=== PATIENT | female | born 1990 | race Caucasian/White ===

== ENCOUNTER 2020-12-18 14:16 | Inpatient (IN) ==
[2020-12-18 14:59] LABS: Basophils # (auto) 0.03 K/uL (0-0.2); Basophils % (auto) 0.4 %; Eosinophils # (auto) 0.08 K/uL (0-0.5); Eosinophils % (auto) 1.2 %; Hematocrit (blood only) 42.5 % (37-47); Hemoglobin 14.5 g/dL (12.0-16.0); Immature Granulocytes # (auto) 0.02 K/uL (0.00-0.02); Immature Granulocytes % (auto) 0.3 %; Lymphocytes # (auto) 1.48 K/uL (1.2-3.4); Lymphocytes % (auto) 21.8 %; Mean Corpuscular Hgb Conc 34.1 g/dL (32-36); Mean Corpuscular Volume 96.6 fL (80-100); Mean Platelet Volume 9.5 fL (7.4-10.4); Monocytes # (auto) 0.65 K/uL (0.11-0.59); Monocytes % (auto) 9.6 %; Neutrophils # (auto) 4.53 K/uL (1.4-6.5); Neutrophils % (auto) 66.7 %; Platelet Count 282 K/uL (130-400); RDW Standard Deviation 45.7 fL (36.4-46.3); White Blood Count 6.79 K/uL (4.8-10.8)
[2020-12-18 15:21] LABS: Albumin Level 3.8 gm/dl (3.4-5.0); Calcium 8.8 mg/dl (8.5-10.1); Creatinine Clr Calc Pharmacy 141.3 ml/min; Est GFR (African American) 130.6 ml/min; Est GFR (Non-African American) 112.7 ml/min; Potassium 3.8 mmol/L (3.5-5.1)
[2020-12-18 15:32] LABS: Albumin Globulin Ratio 1.3 (0.9-2); Bilirubin,Total 0.4 mg/dl (0.2-1); Thyroid Stimulating Hormone 0.585 uIu/ml (0.300-4.500); Total Protein 6.8 gm/dl (6.4-8.2)
[2020-12-18 15:42] LABS: Acetaminophen < 2 ug/ml (10-30)
[2020-12-18 15:43] LABS: Salicylate < 1.7 mg/dl (2.8-20)
[2020-12-18 16:43] LABS: Appearance Urine Clear (Clear); Bilirubin Urine Negative (Negative); Blood Urine Negative (Negative); Color Urine Yellow; Glucose Urine UA Negative (Negative); Ketones Urine Negative (Negative); Leukocyte Esterase Urine Negative (Negative); Nitrite Urine Negative (Negative); Protein Urine Negative (Negative); Specific Gravity Urine 1.006 (1.000-1.030); Urobilinogen Urine Negative (Negative); pH Urine 7.5 (4.5-7.5)
--- NOTE | 2020-12-18 16:59 | Emergency Department Note ---
Impression & Plan Mood disorder ED Provider Note NAME: SUDHEER MADISON AGE: 30 SEX: F : 1990 ARRIVES VIA: Walk-In INFORMANT: Patient, ED PROVIDER(S): Aguilar Hamilton MD CHIEF COMPLAINT: Feeling suicidal HPI: This is a 30-year-old female who presents emergency department complaining of feeling suicidal. The patient is homeless and is living in a [place] [facility] [place]. She believes she is approximately 6 weeks . The patient reports all of her meds were stopped except for Zoloft during her . She reports nothing makes the feelings of feeling suicidal better or worse. She has not tried or taken anything for the feelings. She reports she does have a history of attempting suicide previously. The patient has been to the emergency department multiple times for this this month and is frustrated that her symptoms do not appear to be getting any better. ROS: See above HPI for pertinent positives & negatives. A total of 10 systems reviewed and were otherwise negative. PAST MEDICAL HISTORY: See Below PAST SURGICAL HISTORY: See Below FAMILY HISTORY: See Below SOCIAL HISTORY: See Below HOME MEDICATIONS: See Below ALLERGIES: See Below VITALS: See Below PHYSICAL EXAMINATION: VITAL SIGNS - Vital signs and nursing notes were reviewed. GENERAL - 30-year-old female appearing stated age who is in no acute distress. SKIN - Without rashes. HEAD - NC/AT. EYES - PERRL with EOMI bilaterally. Sclera anicteric. Palpebral conjunctiva pink and moist with no injection noted. EARS - No deformities of external structures noted on gross examination bilaterally. NOSE - Midline and without cyanosis. No epistaxis or purulent drainage noted. Septum midline without deviation or septal hematoma noted. MOUTH/OROPHARYNX - Without perioral cyanosis. Buccal mucosa pink and moist and without leukoplakia. Tongue midline with equal elevation of palate bilaterally. No tonsillar hypertrophy, erythema, or exudates noted. NECK - Neck with FROM. Supple to palpation. No nuchal rigidity. LUNGS - Chest wall symmetric without accessory muscle use, intercostals retractions, or central cyanosis. Normal vesicular breath sounds CTA B/L. No wheezes, rales, or rhonchi appreciated. CARDIAC - RRR with S1/S2. No murmur, rubs, or gallops appreciated. ABDOMEN - Abdominal contour without pulsations or visible masses. BS normoactive all four quadrants. No tenderness, palpable masses, hepatosplenom egaly, or ascites noted. EXTREMITIES - No clubbing or peripheral cyanosis. No pretibial edema present. +3/5 radial, posterior tibial, and dorsalis pedis pulses palpated throughout. +5/5 strength noted in UE/LE bilaterally. NEUROLOGIC - Cranial nerves II through XII grossly intact. Sensory intact to light touch throughout. Patellar reflexes +2/4. PSYCH - A&Ox3 and cooperates fully with examiner. Pt is very pleasant and interacts well with examiner. MEDICAL DECISION MAKING: Patient was seen and evaluated as above in room A7. Review was performed of nursing notes and vital signs. I did review pertinent previous visits and patient history. After obtaining a thorough history and physical examination the above work up was performed. This is a 30-year-old female who presents emergency department feeling suicidal. This is the ninth time the patient has been in the emergency department for this this month. Her medicines have recently been changed. She is currently living in a [place] [facility] [place] and was sent in by [facility]. She was medically cleared by me. She does not have an elevation in her white blood cell count has a normal renal profile. BHCG is climbing. Patient was subsequently accepted to [facility]. An order was placed for continuous cardiac monitoring. The monitor shows a rate of 76 with Normal SInus rhythm. The patient was evaluated during a period of high volume and high acuity during the global COVID-19 pandemic, and that diagnosis was suspected/considered upon their initial presentation. Their evaluation, treatment and testing was consistent with current guidelines for patients who present with complaints or symptoms that may be related to COVID-19. Patient was seen while provider was wearing PPE. Triage Nursing notes reviewed. Prior medical records reviewed Vital Signs: reviewed and remarkable for no significant abnormalities Differential diagnosis: Mood disorder, infection, hypoglycemia, electrolyte abnormalities, cardiac sources, intracerebral event, toxicologic, trauma, neurologic, as well as other pathologies. ER treatment provided: See below Laboratory studies: As stated above and show below. Past Med/Surg History Medical History High serum chloride Personality disorder PTSD (post-traumatic stress disorder) Suicidal ideation Suicide attempt Surgical History Hx of cholecystectomy Social History Smoking Status: Current every day smoker Tobacco Type: Cigarettes Preferred Language: Lao Communication Ability: Effective Coastal Tug Mate Required: No Beliefs That Will Affect Care: None Feels Safe at Home: Yes Assistive Devices: None Allergies Allergies Allergy/AdvReac Type Severity Reaction Status Date / Time codeine Allergy Unknown DOESN'T Verified 12/16/20 00:40 REMEMBER morphine Allergy Unknown DOESN'T Verified 12/16/20 00:40 REMEMBER Penicillins Allergy Unknown DOESN'T Verified 12/16/20 00:40 REMEMBER strawberry Allergy Unknown DOESN'T Uncoded 12/16/20 00:40 REMEMBER Home Meds Home Medications Medication Instructions Recorded Confirmed docusate sodium [Stool Softener] 100 mg PO DAILY 07/09/20 12/18/20 levothyroxine 88 mcg PO DAILY 07/09/20 12/18/20 sucralfate 1 g PO TIDM 07/09/20 12/18/20 ferrous sulfate 325 mg PO DAILY 07/10/20 12/18/20 omeprazole 20 mg PO QAM 07/10/20 12/18/20 acetaminophen 500 mg PO Q6 PRN 08/15/20 12/18/20 loratadine [Allergy Relief 10 mg PO DAILY 08/15/20 12/18/20 (loratadine)] sertraline [Zoloft] 50 mg PO DAILY 12/14/20 12/18/20 PNV cmb#[id number] fumarate-FA 1 tab PO DAILY 12/16/20 12/18/20 [] Results & Data (ED) Vital Signs Vital Signs - 24 hr 12/18/20 14:18 12/18/20 16:53 12/18/20 19:34 Temperature 36.3 C L Temperature Source Temporal Artery Scan Pulse Rate 94 H Pulse Rate [Finger] 76 Respiratory Rate 18 14 Respiratory Effort / Characteristics Non-Labored Spontaneous Respiratory Depth Normal Normal Respiratory Pattern Regular Blood Pressure 129/89 Blood Pressure [Right Arm] 108/72 Blood Pressure Mean 102 Blood Pressure Mean [Right Arm] 84 Blood Pressure Position [Right Arm] Lying Pulse Oximetry 99 98 Oxygen Delivery Method Room Air Room Air Room Air Sepsis Recent Fever Within 48 Hours No Sepsis New/Unexplained Change in Mental Status N/A Sepsis Action Taken by Nursing No Action Required Laboratory Data Result diagrams: 12/18/20 14:39 12/18/20 14:39 Lab Results 12/18/20 12/18/20 12/18/20 Range/Units 14:39 14:39 14:39 WBC 6.79 (4.8-10.8) K/uL RBC 4.40 (4.2-5.4) M/uL Hgb 14.5 (12.0-16.0) g/dL Hct 42.5 (37-47) % MCV 96.6 (80-100) fL MCH 33.0 (25-34) pg MCHC 34.1 (32-36) g/dL RDW Std Deviation 45.7 (36.4-46.3) fL RDW Coeff of Katia 13.0 (11.5-14.5) % Plt Count 282 (130-400) K/uL MPV 9.5 (7.4-10.4) fL Immature Gran % (Auto) 0.3 % Neut % (Auto) 66.7 % Lymph % (Auto) 21.8 % [place] % (Auto) 9.6 % Eos % (Auto) 1.2 % Baso % (Auto) 0.4 % Neut # (Auto) 4.53 (1.4-6.5) K/uL Lymph # (Auto) 1.48 (1.2-3.4) K/uL [place] # (Auto) 0.65 H (0.11-0.59) K/uL Eos # (Auto) 0.08 (0-0.5) K/uL Baso # (Auto) 0.03 (0-0.2) K/uL Immature Gran # (Auto) 0.02 (0.00-0.02) K/uL Sodium 140 (136-145) mmol/L Potassium 3.8 (3.5-5.1) mmol/L Chloride 110 H (98-107) mmol/L Carbon Dioxide 26 (21-32) mmol/L Anion Gap 4.0 (3-11) BUN 10 (7-18) mg/dl Creatinine 0.71 (0.6-1.2) mg/dl Est Cr Clr Drug Dosing 141.3 ml/min Est GFR ( Amer) 130.6 ml/min Est GFR (Non-Af Amer) 112.7 ml/min BUN/Creatinine Ratio 14.0 (10-20) Glucose 100 H (70-99) mg/dl Calcium 8.8 (8.5-10.1) mg/dl Total Bilirubin 0.4 (0.2-1) mg/dl AST 9 L (15-37) U/L ALT 24 (12-78) U/L Alkaline Phosphatase 75 (45-117) U/L Total Protein 6.8 (6.4-8.2) gm/dl Albumin 3.8 (3.4-5.0) gm/dl Globulin 3.0 (2.5-4.0) gm/dl Albumin/Globulin Ratio 1.3 (0.9-2) TSH 0.585 (0.300-4.500) uIu/ml HCG, Quant 29410 mIU/ml Urine Color Urine Appearance (Clear) Urine pH (4.5-7.5) Ur Specific [place] (1.000-1.030) Urine Protein (Negative) Urine Glucose (UA) (Negative) Urine Ketones (Negative) Urine Blood (Negative) Urine Nitrite (Negative) Urine Bilirubin (Negative) Urine Urobilinogen (Negative) Ur Leukocyte Esterase (Negative) Salicylates (2.8-20) mg/dl Urine Opiates Screen (Neg) Ur Methadone, Qual (Neg) Acetaminophen (10-30) ug/ml Urine Barbiturates (Neg) Ur Phencyclidine (PCP) (Neg) U Amphetamin/Meth Scrn (Neg) MDMA (Ecstasy) Screen (Neg) U Benzodiazepines Scrn (Neg) Ur Cocaine Metabolite (Neg) U Marijuana (THC) Screen (Neg) Ethyl Alcohol mg/dL (0-3) mg/dl COVID-19 Eval Order SARS-CoV-2 (PCR) (Negative) 12/18/20 12/18/20 12/18/20 Range/Units 14:39 14:39 16:20 WBC (4.8-10.8) K/uL RBC (4.2-5.4) M/uL Hgb (12.0-16.0) g/dL Hct (37-47) % MCV (80-100) fL MCH (25-34) pg MCHC (32-36) g/dL RDW Std Deviation (36.4-46.3) fL RDW Coeff of [place] (11.5-14.5) % Plt Count (130-400) K/uL MPV (7.4-10.4) fL Immature Gran % (Auto) % Neut % (Auto) % Lymph % (Auto) % [place] % (Auto) % Eos % (Auto) % Baso % (Auto) % Neut # (Auto) (1.4-6.5) K/uL Lymph # (Auto) (1.2-3.4) K/uL [place] # (Auto) (0.11-0.59) K/uL Eos # (Auto) (0-0.5) K/uL Baso # (Auto) (0-0.2) K/uL Immature Gran # (Auto) (0.00-0.02) K/uL Sodium (136-145) mmol/L Potassium (3.5-5.1) mmol/L Chloride (98-107) mmol/L Carbon Dioxide (21-32) mmol/L Anion Gap (3-11) BUN (7-18) mg/dl Creatinine (0.6-1.2) mg/dl Est Cr Clr Drug Dosing ml/min Est GFR ( Amer) ml/min Est GFR (Non-Af Amer) ml/min BUN/Creatinine Ratio (10-20) Glucose (70-99) mg/dl Calcium (8.5-10.1) mg/dl Total Bilirubin (0.2-1) mg/dl AST (15-37) U/L ALT (12-78) U/L Alkaline Phosphatase (45-117) U/L Total Protein (6.4-8.2) gm/dl Albumin (3.4-5.0) gm/dl Globulin (2.5-4.0) gm/dl Albumin/Globulin Ratio (0.9-2) TSH (0.300-4.500) uIu/ml HCG, Quant mIU/ml Urine Color Yellow Urine Appearance Clear (Clear) Urine pH 7.5 (4.5-7.5) Ur Specific [place] 1.006 (1.000-1.030) Urine Protein Negative (Negative) Urine Glucose (UA) Negative (Negative) Urine Ketones Negative (Negative) Urine Blood Negative (Negative) Urine Nitrite Negative (Negative) Urine Bilirubin Negative (Negative) Urine Urobilinogen Negative (Negative) Ur Leukocyte Esterase Negative (Negative) Salicylates < 1.7 L (2.8-20) mg/dl Urine Opiates Screen (Neg) Ur Methadone, Qual (Neg) Acetaminophen < 2 L (10-30) ug/ml Urine Barbiturates (Neg) Ur Phencyclidine (PCP) (Neg) U Amphetamin/Meth Scrn (Neg) MDMA (Ecstasy) Screen (Neg) U Benzodiazepines Scrn (Neg) Ur Cocaine Metabolite (Neg) U Marijuana (THC) Screen (Neg) Ethyl Alcohol mg/dL < 3.0 (0-3) mg/dl COVID-19 Eval Order SARS-CoV-2 (PCR) (Negative) 12/18/20 12/18/20 12/18/20 Range/Units 16:20 17:15 17:15 WBC (4.8-10.8) K/uL RBC (4.2-5.4) M/uL Hgb (12.0-16.0) g/dL Hct (37-47) % MCV (80-100) fL MCH (25-34) pg MCHC (32-36) g/dL RDW Std Deviation (36.4-46.3) fL RDW Coeff of Katia (11.5-14.5) % Plt Count (130-400) K/uL MPV (7.4-10.4) fL Immature Gran % (Auto) % Neut % (Auto) % Lymph % (Auto) % [place] % (Auto) % Eos % (Auto) % Baso % (Auto) % Neut # (Auto) (1.4-6.5) K/uL Lymph # (Auto) (1.2-3.4) K/uL [place] # (Auto) (0.11-0.59) K/uL Eos # (Auto) (0-0.5) K/uL Baso # (Auto) (0-0.2) K/uL Immature Gran # (Auto) (0.00-0.02) K/uL Sodium (136-145) mmol/L Potassium (3.5-5.1) mmol/L Chloride (98-107) mmol/L Carbon Dioxide (21-32) mmol/L Anion Gap (3-11) BUN (7-18) mg/dl Creatinine (0.6-1.2) mg/dl Est Cr Clr Drug Dosing ml/min Est GFR ( Amer) ml/min Est GFR (Non-Af Amer) ml/min BUN/Creatinine Ratio (10-20) Glucose (70-99) mg/dl Calcium (8.5-10.1) mg/dl Total Bilirubin (0.2-1) mg/dl AST (15-37) U/L ALT (12-78) U/L Alkaline Phosphatase (45-117) U/L Total Protein (6.4-8.2) gm/dl Albumin (3.4-5.0) gm/dl Globulin (2.5-4.0) gm/dl Albumin/Globulin Ratio (0.9-2) TSH (0.300-4.500) uIu/ml HCG, Quant mIU/ml Urine Color Urine Appearance (Clear) Urine pH (4.5-7.5) Ur Specific [place] (1.000-1.030) Urine Protein (Negative) Urine Glucose (UA) (Negative) Urine Ketones (Negative) Urine Blood (Negative) Urine Nitrite (Negative) Urine Bilirubin (Negative) Urine Urobilinogen (Negative) Ur Leukocyte Esterase (Negative) Salicylates (2.8-20) mg/dl Urine Opiates Screen Neg (Neg) Ur Methadone, Qual Neg (Neg) Acetaminophen (10-30) ug/ml Urine Barbiturates Neg (Neg) Ur Phencyclidine (PCP) Neg (Neg) U Amphetamin/Meth Scrn Neg (Neg) MDMA (Ecstasy) Screen Neg (Neg) U Benzodiazepines Scrn Neg (Neg) Ur Cocaine Metabolite Neg (Neg) U Marijuana (THC) Screen Neg (Neg) Ethyl Alcohol mg/dL (0-3) mg/dl COVID-19 Eval Order Covid19 at [facility] SARS-CoV-2 (PCR) NEGATIVE (Negative) Administered Medications Docusate Sodium (Docusate Sodium 100 Mg Cap) 100 mg PO DAILY JOSE CRUZ Stop: 01/18/21 08:59 Last Admin: 12/19/20 10:06 Dose: 100 mg Documented by: [id number] Hydroxyzine HCl (Hydroxyzine Hcl 25 Mg Tab) 25 mg PO Q4H PRN PRN Reason: Anxiety Stop: 01/17/21 19:56 Last Admin: 12/18/20 20:29 Dose: 25 mg Documented by: [id number] Levothyroxine Sodium (Levothyroxine Sodium 88 Mcg Tablet) 88 mcg PO DAILYBB [facility] Stop: 01/18/21 07:59 Last Admin: 12/19/20 10:05 Dose: 88 mcg Documented by: [id number] Loratadine (Loratadine 10 Mg Tab) 10 mg PO QAM [facility] Stop: 01/18/21 08:59 Last Admin: 12/19/20 10:06 Dose: 10 mg Documented by: [id number] Prenat Multivit/[place]/Iron/Folic Ac ( Vitamin 1 Tab) [facility] Stop: 01/18/21 08:59 Last Admin: 12/19/20 10:06 Dose: 1 tab Documented by: [id number] Sucralfate (Sucralfate 1 Gm Tab) 1 gm PO QID [facility] Stop: 01/17/21 20:59 Last Admin: 12/19/20 13:34 Dose: 1 gm Documented by: [id number] Admin: 12/19/20 10:07 Dose: 1 gm Documented by: [id number] Admin: 12/18/20 20:33 Dose: 1 gm Documented by: [id number] Discontinued Medications Sertraline HCl (Sertraline Hcl 50 Mg Tablet) [facility] Stop: 01/18/21 08:59 Last Admin: 12/19/20 10:07 Dose: 50 mg Documented by: [id number] Discharge Plan Visit Data Chief Complaint: Mental Health Evaluation Stated Complaint: MENTAL HEALTH EVALUATION ED Provider: Aguilar Hamilton Discharge Problem: Mood disorder Patient Disposition: Admitted As Inpatient Discharge Instructions Interventions: ED Discharge Assessment Last Done: 12/18/20 19:34
[2020-12-18 17:04] LABS: Amphetamines+Metham, Urine Neg (Neg); Barbiturates, Urine Neg (Neg); Benzodiazepine, Urine Neg (Neg); Cocaine, Urine Neg (Neg); MDMA (Ecstacy), Urine Neg (Neg); Methadone, Urine Neg (Neg); Opiate, Urine Neg (Neg); Phencyclidine, Urine Neg (Neg)
[2020-12-18] MEDS ORDERED: hydrOXYzine HCl 25 MG TAB PO PRN (19:57)
[2020-12-18] MEDS ORDERED: MAGNESIUM HYDROXIDE SUSP 30 ML UDC PO PRN (19:57)
[2020-12-18] MEDS ORDERED: BISMUTH SUBSALICYLATE LIQD 236 ML PO PRN (19:57)
[2020-12-18] MEDS ORDERED: ACETAMINOPHEN 325 MG TAB PO PRN (19:57)
[2020-12-18] MEDS ORDERED: ALUMINUM/MAGNESIUM SUSP 30 ML UDC PO PRN (19:57)
[2020-12-18] MEDS ORDERED: SODIUM CHLORIDE 0.65% NA SOLN 45 ML (OCEAN) PRN (19:57)
[2020-12-18] MEDS: hydrOXYzine HCl 25 MG TAB PO PRN (20:29)
[2020-12-18] MEDS: SUCRALFATE 1 GM TAB PO SCH (20:33)
[2020-12-19] MEDS ORDERED: SERTRALINE HCL 50 MG TABLET PO SCH (09:00)
[2020-12-19] MEDS: LEVOTHYROXINE SODIUM 88 MCG TABLET PO SCH (10:05)
[2020-12-19] MEDS: PRENATAL VITAMIN 1 TAB PO SCH (10:06)
[2020-12-19] MEDS: DOCUSATE SODIUM 100 MG CAP PO SCH (10:06)
[2020-12-19] MEDS: LORATADINE 10 MG TAB PO SCH (10:06)
[2020-12-19] MEDS: SUCRALFATE 1 GM TAB PO SCH ×4 (10:07→21:20)
--- NOTE | 2020-12-19 14:53 | History & Physical ---
Date of Service December 19, 2020 Impression / Recommendations Impression 30 yo female with extensive hx of SIB/suicidal gestures and hospitalizations culminating in extended state hospital stay, presents for 3rd hospitalization since discharge with SI in the context of now being and recent medication changes. (1) : Monitor outpatient follow-up with obstetrics and gynecology. Weeks of gestation: less than 8 weeks Qualified Code(s): Z3A.01 - Less than 8 weeks gestation of Present on Admission?: Yes (2) Depressed mood: The patient was admitted to the [facility] ([facility]) on q15 min checks (behavioral with suicide precautions) for safety. The patient will participate in group, recreational, and milieu therapies and will be offered additional individual and family sessions as clinically appropriate. Continue current medications. Patient's medications recently discontinued we will increase sertraline to 100 mg as patient was on 80 mg of Prozac when it was discontinued we will re-add haloperidol as this has no proven data that it is harmful in this was discussed with the patient and reviewed the risks and the benefits of using haloperidol Present on Admission?: Yes (3) Suicidal ideation: Patient at this time denies active suicidal thoughts or plan Present on Admission?: Yes Inventory Assets Strengths: Verbal Needs: THerapy, medication management Risk Factors Assessment Male: No Do You Have Access To A Gun?: No Mental Health Diagnoses: Yes Substance Use Disorders: No Protective Factors Assessment Employed: No Stable Relationships: Yes Good Rapport with Provider: Yes Psychiatric History Identifying Data SUDHEER MADISON is s a 30-year-old F who currently lives in [facility], has a history of self-injurious behavior and state hospitalization, and was admitted on 12/18/20 19:36 on a 201 voluntary commitment for Suicidal Ideation, In the context of medication changes and new . Chief Complaint "[They changed my medications and I got very depressed]". History of Present Illness Patient has a prior admission to [address] [place] [address] in 2019 and in the past in 2005, subsequently admitted to multiple units before placed at [facility] for 4 years (discharged 06/26). She has been living in [facility] recently. She reported developing SI past several days due to adjustment of her medication. Recently reported " getting 7 weeks" and her outpatient docs changing my medicines" reports increase depression since then. Sudheer states that she started having intrusive thoughts, with worsening suicidal ideations past several days. Patient reports coming to the emergency department several times and feeling that she could not take it anymore she denied having an active plan at the time. Patient when seen today denies suicidal thoughts or plans felt that she needed her medications adjusted patient also did admit that her was unplanned and unexpected. Patient denies auditory hallucinations visual hallucinations or homicidal thoughts. Past Psychiatric History Previous Psych History: Previous Psych History: extensive starting with treatment as a child in foster care, ultimately RTF placement Current Psychiatric Diagnosis: Bipolar d/o, Borderline personality disorder, PTSD Outpatient Services: [facility] MO[facility], [facility], no therapist Previous Psych Admissions: last here 2006, multiple ([facility], [facility], [facility], [facility], [facility]--most recent 07/26) Current Psychiatric Diagnosis: Bipolar Disorder Previous Psych Admissions: Previous Psych History: extensive starting with treatment as a child in foster care, ultimately RTF placement Current Psychiatric Diagnosis: Bipolar d/o, Borderline personality disorder, PTSD Out[facility], no therapist Previous Psych Admissions: last here 10/25 and 2006, multiple admissions including [facility], [place], [facility], [facility], [facility] 07/26, most recent [facility]- 10/25 ) Do You Have Access To A Gun?: No History of Previous Suicide Attempt: Yes Describe Attempts in the Past: Overdose in October Past Medication Trials: extensive--per various ED notes include but likely not limited to: Zyprexa, Neurontin, Pail, Zoloft, Trileptal, Bupropion, Ziprasidone, lurasidone, lamictal, klonopin, buspar, lithium and current meds. Past Head Trauma/Neuro History History of Concussion/Seizure: No Allergies Allergy/AdvReac Type Severity Reaction Status Date / Time codeine Allergy Unknown DOESN'T Verified 12/16/20 00:40 REMEMBER morphine Allergy Unknown DOESN'T Verified 12/16/20 00:40 REMEMBER Penicillins Allergy Unknown DOESN'T Verified 12/16/20 00:40 REMEMBER strawberry Allergy Unknown DOESN'T Uncoded 12/16/20 00:40 REMEMBER Home Medications Medication Instructions Recorded Confirmed Type docusate sodium [Stool Softener] 100 mg PO DAILY 07/09/20 12/18/20 History levothyroxine 88 mcg PO DAILY 07/09/20 12/18/20 History sucralfate 1 g PO TIDM 07/09/20 12/18/20 History ferrous sulfate 325 mg PO DAILY 07/10/20 12/18/20 History omeprazole 20 mg PO QAM 07/10/20 12/18/20 History acetaminophen 500 mg PO Q6 PRN 08/15/20 12/18/20 History loratadine [Allergy Relief 10 mg PO DAILY 08/15/20 12/18/20 History (loratadine)] sertraline [Zoloft] 50 mg PO DAILY 12/14/20 12/18/20 History PNV cmb#95-ferrous fumarate-FA 1 tab PO DAILY 12/16/20 12/18/20 History [] Family History Family History of: Doesn't Know Alcohol History Hx of Alcohol Use Over the Past 12 Months: No AUDIT Total Score: 0 Smoking Use Have You Smoked or Used Tobacco Products in the Last 30 Days: Yes tobacco type: cigarettes Smoking Status: Current every day smoker Smoking packs per day: 5 Substance History Hx of Prescription Med Misuse Over the Past 12 Months: No Hx of Over the Counter Med Misuse Over the Past 12 Months: No Hx of Inhalent Misuse Over the Past 12 Months: No Hx of Organic Substance Use Over the Past 12 Months: No Hx of Illegal Substances/Street Drug Use Over Past 12 Months: No Problems as a Result of Past Substance Use: None Identified Personal History Living Arrangements: Temporary [facility] Living Arrangements Comments: Currently staying at [place] Highest Grade Completed: High School Graduate Marital Status: Single Number Of Children: Currently - 8 weeks Beliefs That Will Affect Care: None Legal Problems Comment: Currently facing fraud charges, has upcoming court hearing in January 2021 Hx Traumatic Life Events: Yes Patient History Medical History High serum chloride Personality disorder PTSD (post-traumatic stress disorder) Suicidal ideation Suicide attempt Surgical History Hx of cholecystectomy Social History Smoking Status: Current every day smoker Tobacco Type: Cigarettes Preferred Language: Uzbek Communication Ability: Effective Library Technology Instructor Required: No Beliefs That Will Affect Care: None Feels Safe at Home: Yes Assistive Devices: None Review of Systems Review of Systems: All systems reviewed & are unremarkable except as noted in HPI & below Patient is currently 7 weeks Physical Exam Psychiatric: Orientation: alert, oriented to person, oriented to place, oriented to time and cooperative Eye Contact: good eye contact Motor Behavior: steady gait and station Speech: no pressured speech and no loud speech low tone, slow Affect: + depressed affect and + flat affect Mood: + depressed mood Thought Process: goal directed thought process and + concrete thought process Suicidal Thoughts: denies suicidal thoughts and denies suicidal plan Homicidal Thoughts: denies homicidal thoughts Hallucinations: no auditory hallucinations and no visual hallucinations Cognition: recent memory grossly intact, remote memory grossly intact and attention grossly intact Estimated Intelligence: consistent with education level Insight: + limited insight Judgement: + limited judgement Vital Signs (Past 24 Hours): Last Vital Signs Temp 36.7 C 12/19/20 06:00 Pulse 89 12/19/20 06:27 Resp 16 12/19/20 06:00 BP 119/77 12/19/20 06:27 Pulse Ox 98 12/18/20 20:05 Results & Data ([facility]) Laboratory Results Laboratory Results - last 24 hr 12/18/20 12/18/20 12/18/20 14:39 14:39 14:39 WBC 6.79 RBC 4.40 Hgb 14.5 Hct 42.5 MCV 96.6 MCH 33.0 MCHC 34.1 RDW Std Deviation 45.7 RDW Coeff of Katia 13.0 Plt Count 282 MPV 9.5 Immature Gran % (Auto) 0.3 Neut % (Auto) 66.7 Lymph % (Auto) 21.8 [place] % (Auto) 9.6 Eos % (Auto) 1.2 Baso % (Auto) 0.4 Neut # (Auto) 4.53 Lymph # (Auto) 1.48 [place] # (Auto) 0.65 H Eos # (Auto) 0.08 Baso # (Auto) 0.03 Immature Gran # (Auto) 0.02 Sodium 140 Potassium 3.8 Chloride 110 H Carbon Dioxide 26 Anion Gap 4.0 BUN 10 Creatinine 0.71 Est Cr Clr Drug Dosing 141.3 Est GFR ( Amer) 130.6 Est GFR (Non-Af Amer) 112.7 BUN/Creatinine Ratio 14.0 Glucose 100 H Calcium 8.8 Total Bilirubin 0.4 AST 9 L ALT 24 Alkaline Phosphatase 75 Total Protein 6.8 Albumin 3.8 Globulin 3.0 Albumin/Globulin Ratio 1.3 TSH 0.585 HCG, Quant [id number] Urine Color Urine Appearance Urine pH Ur Specific [place] Urine Protein Urine Glucose (UA) Urine Ketones Urine Blood Urine Nitrite Urine Bilirubin Urine Urobilinogen Ur Leukocyte Esterase Salicylates Urine Opiates Screen Ur Methadone, Qual Acetaminophen Urine Barbiturates Ur Phencyclidine (PCP) U Amphetamin/Meth Scrn MDMA (Ecstasy) Screen U Benzodiazepines Scrn Ur Cocaine Metabolite U Marijuana (THC) Screen Ethyl Alcohol mg/dL COVID-19 Eval Order SARS-CoV-2 (PCR) 12/18/20 12/18/20 12/18/20 14:39 14:39 16:20 WBC RBC Hgb Hct MCV MCH MCHC RDW Std Deviation RDW Coeff of Katia Plt Count MPV Immature Gran % (Auto) Neut % (Auto) Lymph % (Auto) [place] % (Auto) Eos % (Auto) Baso % (Auto) Neut # (Auto) Lymph # (Auto) [place] # (Auto) Eos # (Auto) Baso # (Auto) Immature Gran # (Auto) Sodium Potassium Chloride Carbon Dioxide Anion Gap BUN Creatinine Est Cr Clr Drug Dosing Est GFR ( Amer) Est GFR (Non-Af Amer) BUN/Creatinine Ratio Glucose Calcium Total Bilirubin AST ALT Alkaline Phosphatase Total Protein Albumin Globulin Albumin/Globulin Ratio TSH HCG, Quant Urine Color Yellow Urine Appearance Clear Urine pH 7.5 Ur Specific [place] 1.006 Urine Protein Negative Urine Glucose (UA) Negative Urine Ketones Negative Urine Blood Negative Urine Nitrite Negative Urine Bilirubin Negative Urine Urobilinogen Negative Ur Leukocyte Esterase Negative Salicylates < 1.7 L Urine Opiates Screen Ur Methadone, Qual Acetaminophen < 2 L Urine Barbiturates Ur Phencyclidine (PCP) U Amphetamin/Meth Scrn MDMA (Ecstasy) Screen U Benzodiazepines Scrn Ur Cocaine Metabolite U Marijuana (THC) Screen Ethyl Alcohol mg/dL < 3.0 COVID-19 Eval Order SARS-CoV-2 (PCR) 12/18/20 12/18/20 12/18/20 16:20 17:15 17:15 WBC RBC Hgb Hct MCV MCH MCHC RDW Std Deviation RDW Coeff of Katia Plt Count MPV Immature Gran % (Auto) Neut % (Auto) Lymph % (Auto) [place] % (Auto) Eos % (Auto) Baso % (Auto) Neut # (Auto) Lymph # (Auto) [place] # (Auto) Eos # (Auto) Baso # (Auto) Immature Gran # (Auto) Sodium Potassium Chloride Carbon Dioxide Anion Gap BUN Creatinine Est Cr Clr Drug Dosing Est GFR ( Amer) Est GFR (Non-Af Amer) BUN/Creatinine Ratio Glucose Calcium Total Bilirubin AST ALT Alkaline Phosphatase Total Protein Albumin Globulin Albumin/Globulin Ratio TSH HCG, Quant Urine Color Urine Appearance Urine pH Ur Specific [place] Urine Protein Urine Glucose (UA) Urine Ketones Urine Blood Urine Nitrite Urine Bilirubin Urine Urobilinogen Ur Leukocyte Esterase Salicylates Urine Opiates Screen Neg Ur Methadone, Qual Neg Acetaminophen Urine Barbiturates Neg Ur Phencyclidine (PCP) Neg U Amphetamin/Meth Scrn Neg MDMA (Ecstasy) Screen Neg U Benzodiazepines Scrn Neg Ur Cocaine Metabolite Neg U Marijuana (THC) Screen Neg Ethyl Alcohol mg/dL COVID-19 Eval Order Covid19 at [facility] SARS-CoV-2 (PCR) NEGATIVE Current Inpatient Medications Current Inpatient Medications: Current Inpatient Medications Acetaminophen (Acetaminophen 325 Mg Tab) 650 mg PO Q4H PRN PRN Reason: Headache or Minor Fever Stop: 01/17/21 19:56 Al Hydrox/Mg Hydrox/Simethicone (Aluminum/Magnesium Susp 30 Ml Udc) 30 ml PO Q4H PRN PRN Reason: GI Upset Stop: 01/17/21 19:56 Bismuth Subsalicylate (Bismuth Subsalicylate Liqd 236 Ml) 15 ml PO PRN PRN PRN Reason: Loose Stool Stop: 01/17/21 19:56 Docusate Sodium (Docusate Sodium 100 Mg Cap) 100 mg PO DAILY JOSE CRUZ Stop: 01/18/21 08:59 Last Admin: 12/19/20 10:06 Dose: 100 mg Documented by: Ferrous Sulfate (Ferrous Sulfate 325 Mg Tab) 325 mg PO QD@16 [facility] Stop: 01/18/21 15:59 Haloperidol (Haloperidol 5 Mg Tab) 5 mg PO HS [facility] Stop: 01/18/21 21:59 Hydroxyzine HCl (Hydroxyzine Hcl 25 Mg Tab) 50 mg PO HSZ PRN PRN Reason: Insomnia Stop: 01/17/21 19:56 Hydroxyzine HCl (Hydroxyzine Hcl 25 Mg Tab) 25 mg PO Q4H PRN PRN Reason: Anxiety Stop: 01/17/21 19:56 Last Admin: 12/18/20 20:29 Dose: 25 mg Documented by: Levothyroxine Sodium (Levothyroxine Sodium 88 Mcg Tablet) 88 mcg PO DAILYBB [facility] Stop: 01/18/21 07:59 Last Admin: 12/19/20 10:05 Dose: 88 mcg Documented by: Loratadine (Loratadine 10 Mg Tab) 10 mg PO QAM [facility] Stop: 01/18/21 08:59 Last Admin: 12/19/20 10:06 Dose: 10 mg Documented by: Magnesium Hydroxide (Magnesium Hydroxide Susp 30 Ml Udc) 30 ml PO DAILY PRN PRN Reason: Constipation Stop: 01/17/21 19:56 Prenat Multivit/Immunohematologist/Iron/Folic Ac ( Vitamin 1 Tab) [facility] Stop: 01/18/21 08:59 Last Admin: 12/19/20 10:06 Dose: 1 tab Documented by: Sertraline HCl (Sertraline Hcl 100 Mg Tablet) 100 mg PO QAM [facility] Stop: 01/19/21 08:59 Sodium Chloride (Sodium Chloride 0.65% Na Soln 45 Ml ([place])) 1 - 2 sprays NA PRN PRN PRN Reason: Nasal Dryness/Congestion Stop: 01/17/21 19:56 Sucralfate (Sucralfate 1 Gm Tab) 1 gm PO QID [facility] Stop: 01/17/21 20:59 Last Admin: 12/19/20 13:34 Dose: 1 gm Documented by:
[2020-12-19] MEDS: FERROUS SULFATE 325 MG TAB PO SCH (17:14)
[2020-12-19] MEDS: haloperidoL 5 MG TAB PO SCH (21:20)
[2020-12-20] MEDS: LEVOTHYROXINE SODIUM 88 MCG TABLET PO SCH (08:33)
[2020-12-20] MEDS: SERTRALINE HCL 100 MG TABLET PO SCH (08:33)
[2020-12-20] MEDS: PRENATAL VITAMIN 1 TAB PO SCH (08:33)
[2020-12-20] MEDS: DOCUSATE SODIUM 100 MG CAP PO SCH (08:33)
[2020-12-20] MEDS: SUCRALFATE 1 GM TAB PO SCH ×4 (08:34→20:28)
[2020-12-20] MEDS: LORATADINE 10 MG TAB PO SCH (08:34)
[2020-12-20] MEDS: hydrOXYzine HCl 25 MG TAB PO PRN (12:22)
[2020-12-20] MEDS: FERROUS SULFATE 325 MG TAB PO SCH (17:28)
--- NOTE | 2020-12-20 19:11 | Psychiatric Progress Note ---
Date of Service December 20, 2020 Impression / Recommendations Impression 30 yo female with extensive hx of SIB/suicidal gestures and hospitalizations culminating in extended state hospital stay, presents for 3rd hospitalization since discharge with SI in the context of now being and recent medication changes. 12/20/20- doing much better , feel michelle open to options doing well with haldol will continue to monitor Inventory Assets Strengths: Verbal Needs: THerapy, medication management Risk Factors Assessment Male: No Do You Have Access To A Gun?: No Mental Health Diagnoses: Yes Substance Use Disorders: No Protective Factors Assessment Employed: No Stable Relationships: Yes Good Rapport with Provider: Yes Interval History Chief Complaint "[]". Review of Systems Sleep Information Total Hours of Sleep: 8 Meal Information Percent Meal Consumed - Breakfast: 90 Percent Meal Consumed - Lunch: 95 Percent Meal Consumed - Dinner: 100 Nutrition Comment: pt. woke late and ate 80% of breakfast mid-morning. Subjective Subjective Patient was seen & assessed and interval progress reviewed with [treatment team] [nursing and social work] Physical Exam Mental Examination Appearance: Unkempt Eye Contact: Maintains Eye Contact Motor Behavior: Unremarkable Speech: Normal Mood: Calm and Sad Affect: Calm, Flat and Withdrawn Thought Process: Intact and [place]ogal Hallucinations: None Insight: Fair Judgement: Fair Psychiatric Orientation: alert, oriented x 3, oriented to place and oriented to time Apperance: appropriately dressed Eye Contact: good eye contact Motor Behavior: steady gait and station Affect: euthymic affect Mood: no depressed mood, no anxious mood and no irritable mood Thought Process: goal directed thought process Thought Content: no hopelessness and no worthlessness Suicidal Thoughts: denies suicidal thoughts and denies suicidal plan Homicidal Thoughts: denies homicidal thoughts and denies homicidal plan Hallucinations: no auditory hallucinations and no visual hallucinations Cognition: remote memory grossly intact and attention grossly intact Estimated Intelligence: consistent with education level Insight: + limited insight Judgement: + limited judgement Vital Signs (Past 24 Hours) Last Vital Signs Temp 36.8 C 12/20/20 06:00 Pulse 66 12/20/20 06:00 Resp 16 12/20/20 06:00 BP 113/76 12/20/20 06:52 Pulse Ox 98 12/18/20 20:05 Results & Data ([facility]) Current Inpatient Medications Current Inpatient Medications: Current Inpatient Medications Acetaminophen (Acetaminophen 325 Mg Tab) 650 mg PO Q4H PRN PRN Reason: Headache or Minor Fever Stop: 01/17/21 19:56 Al Hydrox/Mg Hydrox/Simethicone (Aluminum/Magnesium Susp 30 Ml Udc) 30 ml PO Q4H PRN PRN Reason: GI Upset Stop: 01/17/21 19:56 Bismuth Subsalicylate (Bismuth Subsalicylate Liqd 236 Ml) 15 ml PO PRN PRN PRN Reason: Loose Stool Stop: 01/17/21 19:56 Docusate Sodium (Docusate Sodium 100 Mg Cap) 100 mg PO DAILY [facility] Stop: 01/18/21 08:59 Last Admin: 12/20/20 08:33 Dose: 100 mg Documented by: Ferrous Sulfate (Ferrous Sulfate 325 Mg Tab) 325 mg PO QD@16 [facility] Stop: 01/18/21 15:59 Last Admin: 12/20/20 17:28 Dose: 325 mg Documented by: Haloperidol (Haloperidol 5 Mg Tab) 5 mg PO HS [facility] Stop: 01/18/21 21:59 Last Admin: 12/19/20 21:20 Dose: 5 mg Documented by: Hydroxyzine HCl (Hydroxyzine Hcl 25 Mg Tab) 50 mg PO HSZ PRN PRN Reason: Insomnia Stop: 01/17/21 19:56 Hydroxyzine HCl (Hydroxyzine Hcl 25 Mg Tab) 25 mg PO Q4H PRN PRN Reason: Anxiety Stop: 01/17/21 19:56 Last Admin: 12/20/20 12:22 Dose: 25 mg Documented by: Levothyroxine Sodium (Levothyroxine Sodium 88 Mcg Tablet) 88 mcg PO DAILYBB [facility] Stop: 01/18/21 07:59 Last Admin: 12/20/20 08:33 Dose: 88 mcg Documented by: Loratadine (Loratadine 10 Mg Tab) 10 mg PO QAM [facility] Stop: 01/18/21 08:59 Last Admin: 12/20/20 08:34 Dose: 10 mg Documented by: Magnesium Hydroxide (Magnesium Hydroxide Susp 30 Ml Udc) 30 ml PO DAILY PRN PRN Reason: Constipation Stop: 01/17/21 19:56 Prenat Multivit/[place]/Iron/Folic Ac ( Vitamin 1 Tab) 1 tab PO QAM [facility] Stop: 01/18/21 08:59 Last Admin: 12/20/20 08:33 Dose: 1 tab Documented by: Sertraline HCl (Sertraline Hcl 100 Mg Tablet) 100 mg PO QAM [facility] Stop: 01/19/21 08:59 Last Admin: 12/20/20 08:33 Dose: 100 mg Documented by: Sodium Chloride (Sodium Chloride 0.65% Na Soln 45 Ml ([place])) 1 - 2 sprays NA PRN PRN PRN Reason: Nasal Dryness/Congestion Stop: 01/17/21 19:56 Sucralfate (Sucralfate 1 Gm Tab) 1 gm PO QID [facility] Stop: 01/17/21 20:59 Last Admin: 12/20/20 17:28 Dose: 1 gm Documented by: Mental Health & Subst Abuse Tx Psychiatrist Name of Psychiatrist: Samuel Osorio Psychiatrist's Therapist Name of Therapist: . Shower Room Attendant Name of Shower Room Attendant: YOSVANY - [place] Phone Number for Shower Room Attendant: [phone] Post Discharge Appointments Primary Care Physician Name Of Family Doctor: Veronica Woodall Primary Care Provider Appointment Comment: [facility] Contact Information Discharge Discharge Address: [address] [place] [address]
[2020-12-20] MEDS: haloperidoL 5 MG TAB PO SCH (20:28)
[2020-12-21] MEDS: LEVOTHYROXINE SODIUM 88 MCG TABLET PO SCH (07:56)
[2020-12-21] MEDS: SERTRALINE HCL 100 MG TABLET PO SCH (08:25)
[2020-12-21] MEDS: LORATADINE 10 MG TAB PO SCH (08:25)
[2020-12-21] MEDS: PRENATAL VITAMIN 1 TAB PO SCH (08:25)
[2020-12-21] MEDS: DOCUSATE SODIUM 100 MG CAP PO SCH (08:25)
[2020-12-21] MEDS: SUCRALFATE 1 GM TAB PO SCH ×4 (08:26→21:10)
[2020-12-21 09:01] LABS: Glucose Fasting 83 mg/dl (70-99)
[2020-12-21 09:22] LABS: Chol HDL Ratio 3; Cholesterol 143 mg/dl (0-200); HDL Cholesterol 52 mg/dl; LDL Cholesterol Calculated 77 mg/dl; Triglycerides 72 mg/dl (0-150); VLDL Cholesterol 14 mg/dl
[2020-12-21] MEDS: FERROUS SULFATE 325 MG TAB PO SCH (17:09)
[2020-12-21] MEDS ORDERED: diphenhydrAMINE Capsule 25 MG CAP PO ONE ×2 (18:32→22:00)
--- NOTE | 2020-12-21 18:37 | Psychiatric Progress Note ---
Date of Service December 21, 2020 Impression / Recommendations Impression 30 yo female with extensive hx of SIB/suicidal gestures and hospitalizations culminating in extended state hospital stay, presents for 3rd hospitalization since discharge with SI in the context of now being and recent medication changes. 12/21/20 -- No side effects from haloperidol re- starting does admit to difficulties with sleep will add Benadryl moitor to see if patients improved mood is consistent 12/20/20- doing much better , feel michelle open to options doing well with haldol will continue to monitor (1) : Monitor outpatient follow-up with obstetrics and gynecology. (2) Depressed mood: 12/21/20 -- No side effects from haloperidol re- starting does admit to difficulties with sleep will add Benadryl moitor to see if patients improved mood is consistent 12/20/20 The patient was admitted to the [facility] ([facility] unit) on q15 min checks (behavioral with suicide precautions) for safety. The patient will participate in group, recreational, and milieu therapies and will be offered additional individual and family sessions as clinically appropriate. Continue current medications. Patient's medications recently discontinued we will increase sertraline to 100 mg as patient was on 80 mg of Prozac when it was discontinued we will re-add haloperidol as this has no proven data that it is harmful in this was discussed with the patient and reviewed the risks and the benefits of using haloperidol (3) Suicidal ideation: Patient at this time denies active suicidal thoughts or plan Inventory Assets Strengths: Verbal Needs: THerapy, medication management Risk Factors Assessment Male: No Do You Have Access To A Gun?: No Mental Health Diagnoses: Yes Substance Use Disorders: No Protective Factors Assessment Employed: No Stable Relationships: Yes Good Rapport with Provider: Yes Interval History Chief Complaint "[I am doing much better today thank you]". Review of Systems Sleep Information Total Hours of Sleep: 8.5 Meal Information Percent Meal Consumed - Breakfast: 100 Percent Meal Consumed - Lunch: 95 Percent Meal Consumed - Dinner: 100 Nutrition Comment: pt. woke late and ate 80% of breakfast mid-morning. Subjective Subjective Patient was seen & assessed and interval progress reviewed with [treatment team] [nursing and social work] patient reports doing much better today patient did complain of poor sleep last night and would like something for her sleep. Patient participated in groups. Patient denies suicidal thoughts. Patient denies any side effects from restarting Haldol and feels that she is in a good place. Physical Exam Psychiatric Orientation: alert, oriented x 3, oriented to person, oriented to place, oriente d to time and cooperative Apperance: appropriately dressed Eye Contact: good eye contact Motor Behavior: steady gait and station Speech: no pressured speech and no loud speech Affect: euthymic affect, + depressed affect and + flat affect Mood: no depressed mood, no anxious mood and no irritable mood Thought Process: goal directed thought process and + concrete thought process Thought Content: no hopelessness and no worthlessness Suicidal Thoughts: denies suicidal thoughts and denies suicidal plan Homicidal Thoughts: denies homicidal thoughts and denies homicidal plan Hallucinations: no auditory hallucinations and no visual hallucinations Cognition: recent memory grossly intact, remote memory grossly intact and attention grossly intact Estimated Intelligence: consistent with education level Insight: + limited insight Judgement: + limited judgement Vital Signs (Past 24 Hours) Last Vital Signs Temp 36.6 C 12/21/20 06:31 Pulse 87 12/21/20 06:33 Resp 16 12/21/20 06:31 BP 125/94 12/21/20 06:33 Pulse Ox 98 12/18/20 20:05 Results & Data ([facility]) Laboratory Results Laboratory Results - last 24 hr 12/21/20 08:15 Fasting Glucose 83 Triglycerides 72 Cholesterol 143 LDL Cholesterol, Calc 77 VLDL Cholesterol, Calc 14 HDL Cholesterol 52 Cholesterol/HDL Ratio 3 Current Inpatient Medications Current Inpatient Medications: Current Inpatient Medications Acetaminophen (Acetaminophen 325 Mg Tab) 650 mg PO Q4H PRN PRN Reason: Headache or Minor Fever Stop: 01/17/21 19:56 Last Admin: 12/21/20 14:34 Dose: 650 mg Documented by: Al Hydrox/Mg Hydrox/Simethicone (Aluminum/Magnesium Susp 30 Ml Udc) 30 ml PO Q4H PRN PRN Reason: GI Upset Stop: 01/17/21 19:56 Bismuth Subsalicylate (Bismuth Subsalicylate Liqd 236 Ml) 15 ml PO PRN PRN PRN Reason: Loose Stool Stop: 01/17/21 19:56 Diphenhydramine HCl (Diphenhydramine Capsule 25 Mg Cap) 50 mg PO HS ONE Stop: 12/21/20 18:33 Docusate Sodium (Docusate Sodium 100 Mg Cap) 100 mg PO DAILY JOSE CRUZ Stop: 01/18/21 08:59 Last Admin: 12/21/20 08:25 Dose: 100 mg Documented by: Ferrous Sulfate (Ferrous Sulfate 325 Mg Tab) 325 mg PO QD@16 JOSE CRUZ Stop: 01/18/21 15:59 Last Admin: 12/21/20 17:09 Dose: 325 mg Documented by: Haloperidol (Haloperidol 5 Mg Tab) 5 mg PO HS JOSE CRUZ Stop: 01/18/21 21:59 Last Admin: 12/20/20 20:28 Dose: 5 mg Documented by: Hydroxyzine HCl (Hydroxyzine Hcl 25 Mg Tab) 50 mg PO HSZ PRN PRN Reason: Insomnia Stop: 01/17/21 19:56 Hydroxyzine HCl (Hydroxyzine Hcl 25 Mg Tab) 25 mg PO Q4H PRN PRN Reason: Anxiety Stop: 01/17/21 19:56 Last Admin: 12/20/20 12:22 Dose: 25 mg Documented by: Levothyroxine Sodium (Levothyroxine Sodium 88 Mcg Tablet) 88 mcg PO DAILYBB [facility] Stop: 01/18/21 07:59 Last Admin: 12/21/20 07:56 Dose: 88 mcg Documented by: Loratadine (Loratadine 10 Mg Tab) 10 mg PO QAM [facility] Stop: 01/18/21 08:59 Last Admin: 12/21/20 08:25 Dose: 10 mg Documented by: Magnesium Hydroxide (Magnesium Hydroxide Susp 30 Ml Udc) 30 ml PO DAILY PRN PRN Reason: Constipation Stop: 01/17/21 19:56 Prenat Multivit/[place]/Iron/Folic Ac ( Vitamin 1 Tab) 1 tab PO QAM [facility] Stop: 01/18/21 08:59 Last Admin: 12/21/20 08:25 Dose: 1 tab Documented by: Sertraline HCl (Sertraline Hcl 100 Mg Tablet) 100 mg PO QAM [facility] Stop: 01/19/21 08:59 Last Admin: 12/21/20 08:25 Dose: 100 mg Documented by: Sodium Chloride (Sodium Chloride 0.65% Na Soln 45 Ml ([place])) 1 - 2 sprays NA PRN PRN PRN Reason: Nasal Dryness/Congestion Stop: 01/17/21 19:56 Sucralfate (Sucralfate 1 Gm Tab) 1 gm PO QID JOSE CRUZ Stop: 01/17/21 20:59 Last Admin: 12/21/20 17:09 Dose: 1 gm Documented by: Mental Health & Subst Abuse Tx Psychiatrist Name of Psychiatrist: Samuel Osorio Psychiatrist's Date of Appointment with Psychiatrist: 12/28/20 Time of Appointment with Psychiatrist: 3:15 p.m. Psychiatric Appointment Comment: Telehealth Therapist Name of Therapist: . Social Media Editor Name of Social Media Editor: YOSVANY Cain Phone Number for Social Media Editor: [phone] Date of Appointment with Social Media Editor: 12/22/20 Time of Appointment with Social Media Editor: 1:30 p.m. Case Management Appointment Comment: Will come see you Post Discharge Appointments Primary Care Physician Name Of Family Doctor: Veronica Woodall Primary Care Time of Appointment with PCP: Please follow up as scheduled Provider Appointment Comment: [address] [place] [address] Other #1: Name of Aftercare Appointment: Veronica Castaneda Phone Number of Aftercare Appointment: [phone] Date of Aftercare Appointment: 12/24/20 Time of Aftercare Appointment: 1:00 p.m. Aftercare Appointment Comment: Telehealth #2: Name of Aftercare Appointment: Veronica Quiroz SENIOR SPECIALIST Phone Number of Aftercare Appointment: [phone] Date of Aftercare Appointment: 12/29/20 Time of Aftercare Appointment: 1:00 p.m. ultrasound; 1:45 provider Aftercare Appointment Comment: Melissa Nicole Contact Information Discharge Discharge Address: [address] [place] [address] (1) Weeks of gestation: less than 8 weeks Qualified Code(s): Z3A.01 - Less than 8 weeks gestation of
[2020-12-21] MEDS: haloperidoL 5 MG TAB PO SCH (21:10)
[2020-12-22] MEDS: PRENATAL VITAMIN 1 TAB PO SCH (09:15)
[2020-12-22] MEDS: SERTRALINE HCL 100 MG TABLET PO SCH (09:15)
[2020-12-22] MEDS: LORATADINE 10 MG TAB PO SCH (09:15)
[2020-12-22] MEDS: SUCRALFATE 1 GM TAB PO SCH (09:15)
[2020-12-22] MEDS: LEVOTHYROXINE SODIUM 88 MCG TABLET PO SCH (09:15)
[2020-12-22] MEDS: DOCUSATE SODIUM 100 MG CAP PO SCH (09:15)
--- NOTE | 2020-12-23 11:48 | Discharge Summary ---
Date of Service December 23, 2020- Late Entry Discharge Summary for DOS 12/22/20 - History of Present Illness Patient is a 30 Year old female with a history of depression who was admitted on a 201 status with worsening depression and Suicidal ideation. Patient has a prior admission to [address] [place] [address] in 2019 and in the past in 2005, subsequently admitted to multiple units before placed at [facility] for 4 years (discharged 06/26). She has been living in [facility] recently. She reported developing SI past several days due to adjustment of her medication. Recently reported " getting 7 weeks" and her outpatient docs changing my medicines" reports increase depression since then. Claire states that she started having intrusive thoughts, with worsening suicidal ideations past several days. Patient reports coming to the emergency department several times and feeling that she could not take it anymore she denied having an active plan at the time. Patient when seen today denies suicidal thoughts or plans felt that she needed her medications adjusted patient also did admit that her was unplanned and unexpected. Patient denies auditory hallucinations visual hallucinations or homicidal thoughts. Physical Exam Mental Examination Appearance: Unkempt Eye Contact: Maintains Eye Contact Motor Behavior: Unremarkable Speech: Normal Mood: Calm and Sad Affect: Calm, Flat and Withdrawn Thought Process: Intact and [place] Hallucinations: None Insight: Fair Judgement: Fair Psychiatric Orientation: alert, oriented to person and cooperative Apperance: appropriately dressed Eye Contact: good eye contact Motor Behavior: steady gait and station Speech: normal rate/rhythm/volume of speech Affect: euthymic affect Mood: no depressed mood, no anxious mood and no dysphoric mood Thought Process: goal directed thought process and linear/logical thought process Thought Content: not paranoid and no delusions Suicidal Thoughts: denies suicidal thoughts Homicidal Thoughts: denies homicidal thoughts Hallucinations: no auditory hallucinations and no visual hallucinations Cognition: recent memory grossly intact, remote memory grossly intact, attention grossly intact and language grossly intact Estimated Intelligence: consistent with education level Insight: good insight Judgement: + fair judgement Vital Signs (Past 24 Hours) Last Vital Signs Temp 36.7 C 12/22/20 09:45 Pulse 76 12/22/20 09:45 Resp 16 12/22/20 09:45 BP 125/94 12/22/20 09:45 Pulse Ox 98 12/22/20 09:45 Principal Diagnosis Mood disorder unspecified Anxiety disorder unspecified Major depression recurrent moderate. Psychiatric Data Day of Discharge Assessment On the day of discharge patient reports doing much better patient was future oriented to going back to [facility] she denied suicidal thoughts or homicidal thoughts. Patient had a family meeting while in the hospital her mother expressed her willingness to be supportive and the agreement was that during the time of her her mother would, in basis at least once a week. Patient reports feeling safe patient reports that the father of the baby is has his own place and is very supportive of her current patient also has appointments with ALLERGIST. On the day of discharge patient was hopeful about her future, her affect was full patient was engaged she was looking forward to being discharged. Please review daily summary for patient's hospital course. Safety was maintained, patient was cooperative with care, medication changes included addition of haloperidol and increase in Zoloft these were tolerated well. A family session was held with her mother, her safety plan was completed prior to discharge. On the day of discharge the patient voiced readiness for discharge they also she also noted improvement in her mood and denies any thoughts of harm to herself or others she remains organized and improved from admission there is no evidence of psychosis patient agrees to take medication as prescribed and follow-up with her appointments this patient at this time is stable for discharge to outpatient. Transition of Care Transition Of Care Record: was reviewed with the patient Advance Directives Advance Directives Information Provided: Yes Advance Directives: No Mental Health Advance Directive: No Advance Directives on File: No Living Will: No Power of Electronics Engineering Professor: No Advance Directives Reason:: Declines as Mental Health Visit. Risk Factors Assessment Male: No Do You Have Access To A Gun?: No Mental Health Diagnoses: Yes Substance Use Disorders: No Protective Factors Assessment Employed: No Stable Relationships: Yes Good Rapport with Provider: Yes Tobacco Cessation at Discharge Tobacco Cessation Medication Prescribed at Discharge: Not Applicable/Non-Smoker Antipsychotic Medications Patient was discharged on haloperidol. Patient aware of the risks and benefits. Total Time Total Time Spent: Less Than 30 Minutes Total Time Includes: Examination of the patient, Discharge Planning and Medication Reconciliation Discharge Data Lab Results 12/18/20 12/18/20 12/18/20 14:39 14:39 14:39 WBC 6.79 RBC 4.40 Hgb 14.5 Hct 42.5 MCV 96.6 MCH 33.0 MCHC 34.1 RDW Std Deviation 45.7 RDW Coeff of Katia 13.0 Plt Count 282 MPV 9.5 Immature Gran % (Auto) 0.3 Neut % (Auto) 66.7 Lymph % (Auto) 21.8 [place] % (Auto) 9.6 Eos % (Auto) 1.2 Baso % (Auto) 0.4 Neut # (Auto) 4.53 Lymph # (Auto) 1.48 [place] # (Auto) 0.65 H Eos # (Auto) 0.08 Baso # (Auto) 0.03 Immature Gran # (Auto) 0.02 Sodium 140 Potassium 3.8 Chloride 110 H Carbon Dioxide 26 Anion Gap 4.0 BUN 10 Creatinine 0.71 Est Cr Clr Drug Dosing 141.3 Est GFR ( Amer) 130.6 Est GFR (Non-Af Amer) 112.7 BUN/Creatinine Ratio 14.0 Glucose 100 H Fasting Glucose Calcium 8.8 Total Bilirubin 0.4 AST 9 L ALT 24 Alkaline Phosphatase 75 Total Protein 6.8 Albumin 3.8 Globulin 3.0 Albumin/Globulin Ratio 1.3 Triglycerides Cholesterol LDL Cholesterol, Calc VLDL Cholesterol, Calc HDL Cholesterol Cholesterol/HDL Ratio TSH 0.585 HCG, Quant 32334 Urine Color Urine Appearance Urine pH Ur Specific [place] Urine Protein Urine Glucose (UA) Urine Ketones Urine Blood Urine Nitrite Urine Bilirubin Urine Urobilinogen Ur Leukocyte Esterase Salicylates Urine Opiates Screen Ur Methadone, Qual Acetaminophen Urine Barbiturates Ur Phencyclidine (PCP) U Amphetamin/Meth Scrn MDMA (Ecstasy) Screen U Benzodiazepines Scrn Ur Cocaine Metabolite U Marijuana (THC) Screen Ethyl Alcohol mg/dL COVID-19 Eval Order SARS-CoV-2 (PCR) 12/18/20 12/18/20 12/18/20 14:39 14:39 16:20 WBC RBC Hgb Hct MCV MCH MCHC RDW Std Deviation RDW Coeff of Katia Plt Count MPV Immature Gran % (Auto) Neut % (Auto) Lymph % (Auto) [place] % (Auto) Eos % (Auto) Baso % (Auto) Neut # (Auto) Lymph # (Auto) [place] # (Auto) Eos # (Auto) Baso # (Auto) Immature Gran # (Auto) Sodium Potassium Chloride Carbon Dioxide Anion Gap BUN Creatinine Est Cr Clr Drug Dosing Est GFR ( Amer) Est GFR (Non-Af Amer) BUN/Creatinine Ratio Glucose Fasting Glucose Calcium Total Bilirubin AST ALT Alkaline Phosphatase Total Protein Albumin Globulin Albumin/Globulin Ratio Triglycerides Cholesterol LDL Cholesterol, Calc VLDL Cholesterol, Calc HDL Cholesterol Cholesterol/HDL Ratio TSH HCG, Quant Urine Color Yellow Urine Appearance Clear Urine pH 7.5 Ur Specific [place] 1.006 Urine Protein Negative Urine Glucose (UA) Negative Urine Ketones Negative Urine Blood Negative Urine Nitrite Negative Urine Bilirubin Negative Urine Urobilinogen Negative Ur Leukocyte Esterase Negative Salicylates < 1.7 L Urine Opiates Screen Ur Methadone, Qual Acetaminophen < 2 L Urine Barbiturates Ur Phencyclidine (PCP) U Amphetamin/Meth Scrn MDMA (Ecstasy) Screen U Benzodiazepines Scrn Ur Cocaine Metabolite U Marijuana (THC) Screen Ethyl Alcohol mg/dL < 3.0 COVID-19 Eval Order SARS-CoV-2 (PCR) 12/18/20 12/18/20 12/18/20 16:20 17:15 17:15 WBC RBC Hgb Hct MCV MCH MCHC RDW Std Deviation RDW Coeff of Katia Plt Count MPV Immature Gran % (Auto) Neut % (Auto) Lymph % (Auto) [place] % (Auto) Eos % (Auto) Baso % (Auto) Neut # (Auto) Lymph # (Auto) [place] # (Auto) Eos # (Auto) Baso # (Auto) Immature Gran # (Auto) Sodium Potassium Chloride Carbon Dioxide Anion Gap BUN Creatinine Est Cr Clr Drug Dosing Est GFR ( Amer) Est GFR (Non-Af Amer) BUN/Creatinine Ratio Glucose Fasting Glucose Calcium Total Bilirubin AST ALT Alkaline Phosphatase Total Protein Albumin Globulin Albumin/Globulin Ratio Triglycerides Cholesterol LDL Cholesterol, Calc VLDL Cholesterol, Calc HDL Cholesterol Cholesterol/HDL Ratio TSH HCG, Quant Urine Color Urine Appearance Urine pH Ur Specific [place] Urine Protein Urine Glucose (UA) Urine Ketones Urine Blood Urine Nitrite Urine Bilirubin Urine Urobilinogen Ur Leukocyte Esterase Salicylates Urine Opiates Screen Neg Ur Methadone, Qual Neg Acetaminophen Urine Barbiturates Neg Ur Phencyclidine (PCP) Neg U Amphetamin/Meth Scrn Neg MDMA (Ecstasy) Screen Neg U Benzodiazepines Scrn Neg Ur Cocaine Metabolite Neg U Marijuana (THC) Screen Neg Ethyl Alcohol mg/dL COVID-19 Eval Order Covid19 [address] [facility] SARS-CoV-2 (PCR) NEGATIVE 12/21/20 08:15 WBC RBC Hgb Hct MCV MCH MCHC RDW Std Deviation RDW Coeff of Katia Plt Count MPV Immature Gran % (Auto) Neut % (Auto) Lymph % (Auto) [place] % (Auto) Eos % (Auto) Baso % (Auto) Neut # (Auto) Lymph # (Auto) [place] # (Auto) Eos # (Auto) Baso # (Auto) Immature Gran # (Auto) Sodium Potassium Chloride Carbon Dioxide Anion Gap BUN Creatinine Est Cr Clr Drug Dosing Est GFR ( Amer) Est GFR (Non-Af Amer) BUN/Creatinine Ratio Glucose Fasting Glucose 83 Calcium Total Bilirubin AST ALT Alkaline Phosphatase Total Protein Albumin Globulin Albumin/Globulin Ratio Triglycerides 72 Cholesterol 143 LDL Cholesterol, Calc 77 VLDL Cholesterol, Calc 14 HDL Cholesterol 52 Cholesterol/HDL Ratio 3 TSH HCG, Quant Urine Color Urine Appearance Urine pH Ur Specific [place] Urine Protein Urine Glucose (UA) Urine Ketones Urine Blood Urine Nitrite Urine Bilirubin Urine Urobilinogen Ur Leukocyte Esterase Salicylates Urine Opiates Screen Ur Methadone, Qual Acetaminophen Urine Barbiturates Ur Phencyclidine (PCP) U Amphetamin/Meth Scrn MDMA (Ecstasy) Screen U Benzodiazepines Scrn Ur Cocaine Metabolite U Marijuana (THC) Screen Ethyl Alcohol mg/dL COVID-19 Eval Order SARS-CoV-2 (PCR) Hospital Course (1) : Monitor outpatient follow-up with obstetrics and gynecology. (2) Depressed mood: 12/22- Patient continued to do well was attending groups. reports being motivated and happy to " get back to outpatient" Reports being excited about her and motivated to " eat better and do better" 12/21/20 -- No side effects from haloperidol re- starting does admit to difficulties with sleep will add Benadryl moitor to see if patients improved mood is consistent 12/20/20 The patient was admitted to the [facility] ([facility]) on q15 min checks (behavioral with suicide precautions) for safety. The patient will participate in group, recreational, and milieu therapies and will be offered additional individual and family sessions as clinically appropriate. Continue current medications. Patient's medications recently discontinued we will increase sertraline to 100 mg as patient was on 80 mg of Prozac when it was discontinued we will re-add haloperidol as this has no proven data that it is harmful in this was discussed with the patient and reviewed the risks and the benefits of using haloperidol (3) Suicidal ideation: Patient at this time denies active suicidal thoughts or plan Mental Health & Subst Abuse Tx Psychiatrist Name of Psychiatrist: Samuel Osorio Psychiatrist's Date of Appointment with Psychiatrist: 12/28/20 Time of Appointment with Psychiatrist: 3:15 p.m. Psychiatric Appointment Comment: Telehealth Psychiatrist Release of Information: Obtained, Reviewed and Signed Therapist Name of Therapist: . Bpm Architect Name of Bpm Architect: DULCEU - Payton Phone Number for Bpm Architect: [phone] Date of Appointment with Bpm Architect: 12/22/20 Time of Appointment with Bpm Architect: 1:30 p.m. Case Management Appointment Comment: Will come see you Bpm Architect Release of Information: Obtained, Reviewed and Signed Post Discharge Appointments Primary Care Physician Name Of Family Doctor: Veronica Woodall Primary Care Time of Appointment with PCP: Please follow up as scheduled Provider Appointment Comment: [address] [place] [address] Primary Care Release of Information: Obtained, Reviewed and Signed Smoking Cessation Counseling Tobacco Cessation Medication Prescribed at Discharge: Not Applicable/Non-Smoker Other #1: Name of Aftercare Appointment: Veronica Castaneda Phone Number of Aftercare Appointment: [phone] Date of Aftercare Appointment: 12/24/20 Time of Aftercare Appointment: 1:00 p.m. Aftercare Appointment Comment: Telehealth Release of Information Aftercare Appointment: Obtained, Reviewed and Signed #2: Name of Aftercare Appointment: Veronica Quiroz BATCH WEIGHER Phone Number of Aftercare Appointment: [phone] Date of Aftercare Appointment: 12/29/20 Time of Aftercare Appointment: 1:00 p.m. ultrasound; 1:45 provider Aftercare Appointment Comment: Melissa Nicole Release of Information Aftercare Appointment: Obtained, Reviewed and Si gned Contact Information Discharge Discharge Address: [address] [place] [address] Discharge Plan Discharge Items Patient Disposition: Home - Self-Care Reason For Visit: BIPOLAR Discharge Diagnosis: Major Depression Severe Condition on Discharge: Good Activity: Resume your previous activity Non-emergency contact: Primary Care Provider Call non-emergency contact if: you have any medication questions Follow-up/Referrals: Desirae Woodall MD [Primary Care Provider] - Diet: Regular Addtl Attending Provider Instructions: Patirent to take medications as directed Pending Studies at Discharge: No Stand-Alone Forms: My [facility], Smoking Cessation Medications and DC Order Prescriptions: New haloperidol 5 mg Tablet 5 mg PO HS Qty: 30 RF: 0 sucralfate 1 gram Tablet 1 g PO QID Qty: 120 RF: 0 sertraline 100 mg Tablet 100 mg PO QAM Qty: 30 RF: 0 levothyroxine [Synthroid] 88 mcg Tablet 88 mcg PO DAILYBB Qty: 30 RF: 0 docusate sodium 100 mg Capsule 100 mg PO DAILY Qty: 30 RF: 0 ferrous sulfate 325 mg (65 mg iron) Tablet,Delayed Release (Dr/Ec) 325 mg PO QD@16 Qty: 30 RF: 0 Vitamin 27 mg iron- 800 mcg Tablet 1 tab PO QAM Qty: 30 RF: 0 loratadine [Wal-itin] 10 mg Tablet 10 mg PO QAM Qty: 30 RF: 0 Discontinued sucralfate 1 gram tablet 1 g PO TIDM RF: 0 levothyroxine 88 mcg tablet 88 mcg PO DAILY RF: 0 docusate sodium [Stool Softener] 100 mg capsule 100 mg PO DAILY RF: 0 ferrous sulfate 325 mg (65 mg iron) tablet 325 mg PO DAILY RF: 0 omeprazole 20 mg capsule,delayed release(DR/EC) 20 mg PO QAM RF: 0 loratadine [Allergy Relief (loratadine)] 10 mg tablet 10 mg PO DAILY RF: 0 acetaminophen 500 mg tablet 500 mg PO Q6 PRN (Reason: Pain) RF: 0 sertraline [Zoloft] 50 mg Tablet 50 mg PO DAILY RF: 0 PNV [id number] fumarate-FA [] 28 mg iron- 800 mcg Tablet 1 tab PO DAILY RF: 0 Discharge Orders: Discharge Order (Routine); Ordered 12/22/20 Ordered By: Karma De Jesus Admission Data Admit Date/Time: 12/18/20 19:36 Attending Provider: Karma De Jesus Admit Provider: Karma De Jesus Primary Care Provider: Desirae Woodall Other Interventions: Discharge Summary Assessment (RN) Last Done: 12/22/20 09:45 PSY Interdisciplinary Discharge Planning Last Done: 12/22/20 09:44 Coding Level of Care Code 91467 D/C day mgmt 30 min or < Diagnoses Z3A.01 Weeks of gestation: less than 8 weeks Depressed mood R45.89 Suicidal ideation R45.851
== END 2020-12-22 10:27 | disposition home or self-care (01) | DRG 832 ==
LOC: ED 14:16 → 3S 19:34

== ENCOUNTER 2021-08-06 07:30 | Inpatient (IN) ==
[2021-08-06] MEDS ORDERED: OXYTOCIN 30 UNITS/500 ML BAG IV PRN ×4 (07:39→20:19)
[2021-08-06 08:05] LABS: Hematocrit (blood only) 35.2 % (37-47); Hemoglobin 11.9 g/dL (12.0-16.0); Mean Corpuscular Hemoglobin 31.1 pg (25-34); Mean Corpuscular Hgb Conc 33.8 g/dL (32-36); Mean Corpuscular Volume 91.9 fL (80-100); Mean Platelet Volume 9.3 fL (7.4-10.4); Platelet Count 281 K/uL (130-400); RDW Coefficient of Variation 12.8 % (11.5-14.5); Red Blood Count 3.83 M/uL (4.2-5.4); White Blood Count 11.41 K/uL (4.8-10.8)
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
[2021-08-06] MEDS: LACTATED RINGER'S 1,000 ML IV PRN ×3 (10:11→17:33)
--- NOTE | 2021-08-06 15:15 | Labor Progress Brief Note ---
Date of Service August 06, 2021 Assessment & Plan Admission and Anticipated Discharge Date Admission Date: August 06, 2021 Physical Exam Genitourinary: Manual OB Exam: + cervical dilation 4 cm, + cervical effacement 60%, + station -2 and + amniotic fluid clear OB Exam Monitor Tracing: + external FHT monitor used, + external uterine monitor used, + category I and + normal FHT variability AROM with Amni-hook clear fluid Results & Data ([facility]) Vital Signs (Past 12 Hours) Vital Signs Temp Pulse Resp BP 08/06/21 15:08 69 113/67 08/06/21 13:54 69 18 130/68 08/06/21 13:14 67 128/62 08/06/21 12:16 65 18 122/66 08/06/21 11:14 72 116/55 L 08/06/21 11:10 36.6 C 18 08/06/21 09:50 83 18 113/61 08/06/21 07:57 36.7 C 116 H 20 131/96 08/06/21 07:41 116 H 131/96
[2021-08-06] MEDS ORDERED: BUTORPHANOL TARTRATE 1 MG/ML VIAL IV PRN (15:21)
[2021-08-06] MEDS ORDERED: BUPIVACAINE 0.25% 30 ML VIAL ONE (16:43)
[2021-08-06] MEDS ORDERED: ePHEDrine sulfate 50 MG/ML AMP ONE (16:43)
[2021-08-06] MEDS ORDERED: SODIUM CHLORIDE 0.9% INJ 10 ML VIAL ONE (16:43)
[2021-08-06] MEDS ORDERED: fentaNYL citrate 100 MCG/2 ML VIAL ONE (16:43)
[2021-08-06] MEDS ORDERED: fentaNYL 2MCG/ML ROPIVACAINE 1.25MG/ML 100 ML BAG EPI ONE (16:44)
[2021-08-06] MEDS ORDERED: NALOXONE HCL 1 MG in SODIUM CHLORIDE 0.9% 1000ML 1,000 ML IV PRN (17:00)
[2021-08-06] MEDS ORDERED: ROPIVACAINE EPI PRN (17:00)
[2021-08-06] MEDS ORDERED: NALOXONE HCL 0.4 MG/1 ML VIAL/CARP IV PRN (17:00)
[2021-08-06] MEDS ORDERED: ePHEDrine sulfate 50 MG/ML AMP IV PRN (17:00)
[2021-08-06] MEDS ORDERED: diphenhydrAMINE 50 MG/ML VIAL IV PRN (17:00)
[2021-08-06] MEDS ORDERED: ONDANSETRON INJ 2 MG/ML 2 ML VIAL IV PRN (17:00)
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
[2021-08-06] MEDS ORDERED: [UNRECOGNIZED DRUG - REMARK] EPI ONE (17:21)
[2021-08-06] MEDS ORDERED: [UNRECOGNIZED DRUG - REMARK] EPI PRN ×2 (17:36→18:13)
--- NOTE | 2021-08-06 19:58 | Delivery Summary ---
Vaginal Delivery Summary Date of Service August 06, 2021 Vaginal Delivery Summary Delivery Note live male ANANYA with nuchal cord x1 reduced at delivery of head. Apgars 7/8 weight pending. Cord blood obtained followed by spontaneous delivery of intact placenta. No tears. EBL 200 ml. Final sponge and instrument count are correct. Mom and baby stable.
[2021-08-06] MEDS ORDERED: HYDROCORTISONE ACETATE 25 MG SUPP PR PRN (20:19)
[2021-08-06] MEDS ORDERED: BENZOCAINE 20% AER SPR 82.5 GM CAN EXT PRN (20:19)
[2021-08-06] MEDS ORDERED: IBUPROFEN 600 MG TAB PO PRN (20:19)
[2021-08-06] MEDS ORDERED: DIPHTHERIA/TETANUS/PERTUSSIS 0.5 ML SYR/VIAL IM ONE (20:19)
[2021-08-06] MEDS ORDERED: SUPERCREAM 0.870% 15 GM JAR EXT PRN (20:19)
[2021-08-06] MEDS ORDERED: bisacodyL 10 MG SUPP PR PRN (20:19)
[2021-08-06] MEDS ORDERED: ACETAMINOPHEN 325 MG TAB PO PRN (20:19)
--- NOTE | 2021-08-06 21:38 | Anesthesia Procedure Note ---
Date of Service August 06, 2021 Anesthesia Post Epidural Note Vital Signs Vital Signs: Temp Pulse Resp BP Pulse Ox 36.7 C 74 18 127/58 L 98 08/06/21 19:13 08/06/21 21:25 08/06/21 21:25 08/06/21 21:25 08/06/21 19:46 Pain Intensity Lower Abdomen: Pain Intensity: 3 Notes Mental Status: alert / awake / arousable and participated in evaluation Nausea / Vomiting: adequately controlled Pain: adequately controlled Airway Patency, RR, SpO2: stable & adequate BP & HR: stable & adequate Hydration State: stable & adequate Neuraxial Anesthesia: was administered and sensory block is resolving Anesthetic Complications: no major complications apparent and Pt Satisfied with anesthetic care Epidural: Removed without complications and With tip intact Notes: Epidural site clean, dry and intact. No signs of edema, erythema or bruising at insertion site. Pt instructed to request anesthesia if she has residual lower extremity numbness or if she develops lower extremity pain or weakness, back pain or headache.
[2021-08-06] MEDS: DOCUSATE SODIUM 100 MG CAP PO SCH (21:41)
[2021-08-06] MEDS: LURASIDONE HCL 40 MG TAB PO SCH (21:41)
[2021-08-07] MEDS: LEVOTHYROXINE SODIUM 88 MCG TABLET PO SCH (05:49)
[2021-08-07 07:47] LABS: Hematocrit (blood only) 30.2 % (37-47); Hemoglobin 10.2 g/dL (12.0-16.0); Mean Corpuscular Hemoglobin 30.8 pg (25-34); Mean Corpuscular Hgb Conc 33.8 g/dL (32-36); Mean Corpuscular Volume 91.2 fL (80-100); Mean Platelet Volume 9.5 fL (7.4-10.4); Platelet Count 265 K/uL (130-400); RDW Coefficient of Variation 12.7 % (11.5-14.5); RDW Standard Deviation 42.2 fL (36.4-46.3); Red Blood Count 3.31 M/uL (4.2-5.4); White Blood Count 15.08 K/uL (4.8-10.8)
[2021-08-07] MEDS ORDERED: PRENATAL VITAMIN 1 TAB PO SCH (08:00)
[2021-08-07] MEDS: DOCUSATE SODIUM 100 MG CAP PO SCH ×3 (08:16→19:56)
[2021-08-07] MEDS: FERROUS SULFATE 325 MG TAB PO SCH (08:17)
[2021-08-07] MEDS: PRENATAL VITAMIN 1 TAB PO SCH (08:17)
[2021-08-07] MEDS: LORATADINE 10 MG TAB PO SCH (08:18)
[2021-08-07] MEDS: OMEPRAZOLE 20 MG CAPCR PO SCH (08:18)
[2021-08-07] MEDS: SERTRALINE HCL 100 MG TABLET PO SCH (08:18)
--- NOTE | 2021-08-07 09:03 | Obstetrical Progress Note ---
Date of Service August 07, 2021 Assessment & Plan Admission and Anticipated Discharge Date Admission Date: August 06, 2021 Subjective Patient is seen and examined. She feels well, no complaints. Ambulating without dizziness Voiding without difficulty Tolerating regular diet with out N&V Bleeding is minimal No fever/ chills/ CP/ SOB/ N&V/ Leg pain Baby is doing well. Vital Signs Temp Pulse Pulse Resp BP BP 08/07/21 03:50 36.7 C 85 18 129/79 08/06/21 22:55 37.3 C 85 18 154/71 H 08/06/21 22:11 80 120/62 08/06/21 21:55 36.8 C 18 08/06/21 21:54 100 H 135/73 08/06/21 21:39 96 H 136/65 08/06/21 21:25 74 18 127/58 L 08/06/21 21:10 75 125/65 Lab Results 08/06/21 08/06/21 08/07/21 Range/Units 07:59 07:59 07:02 WBC 11.41 H 15.08 H (4.8-10.8) K/uL RBC 3.83 L 3.31 L (4.2-5.4) M/uL Hgb 11.9 L 10.2 L (12.0-16.0) g/dL Hct 35.2 L 30.2 L (37-47) % MCV 91.9 91.2 (80-100) fL MCH 31.1 30.8 (25-34) pg MCHC 33.8 33.8 (32-36) g/dL RDW Std Deviation 43.0 42.2 (36.4-46.3) fL RDW Coeff of Katia 12.8 12.7 (11.5-14.5) % Plt Count 281 265 (130-400) K/uL MPV 9.3 9.5 (7.4-10.4) fL Blood Type AB Positive Antibody Screen NEGATIVE PE: General: Alert, orientedx3, NAD Abd: soft, NT, fundus firm, below Umbilicus Perineum intact, Lochia rubra minimal Ext; NT, no edema AP: 31 yo s/p , ppd# 1 VSS Afebrile doing well Continue routine care All questions were answered D/C home tomorrow Results & Data ([facility]) Vital Signs (Past 12 Hours) Vital Signs Temp Pulse Pulse Resp BP BP 08/07/21 03:50 36.7 C 85 18 129/79 08/06/21 22:55 37.3 C 85 18 154/71 H 08/06/21 22:11 80 120/62 08/06/21 21:55 36.8 C 18 08/06/21 21:54 100 H 135/73 08/06/21 21:39 96 H 136/65 08/06/21 21:25 74 18 127/58 L 08/06/21 21:10 75 125/65
[2021-08-07] MEDS: LURASIDONE HCL 40 MG TAB PO SCH (19:56)
[2021-08-07] MEDS ORDERED: bisacodyL 5 MG TABEC PO SCH (20:00)
[2021-08-08] MEDS: LEVOTHYROXINE SODIUM 88 MCG TABLET PO SCH (06:04)
[2021-08-08 06:25] LABS: Hematocrit (blood only) 29.2 % (37-47); Hemoglobin 9.5 g/dL (12.0-16.0); Mean Corpuscular Hemoglobin 30.7 pg (25-34); Mean Corpuscular Hgb Conc 32.5 g/dL (32-36); Mean Corpuscular Volume 94.5 fL (80-100); Mean Platelet Volume 9.3 fL (7.4-10.4); Platelet Count 227 K/uL (130-400); RDW Coefficient of Variation 13.2 % (11.5-14.5); RDW Standard Deviation 45.5 fL (36.4-46.3); Red Blood Count 3.09 M/uL (4.2-5.4); White Blood Count 11.22 K/uL (4.8-10.8)
[2021-08-08 06:49] LABS: Basophils # (auto) 0.03 K/uL (0-0.2); Basophils % (auto) 0.3 %; Eosinophils # (auto) 0.12 K/uL (0-0.5); Eosinophils % (auto) 1.1 %; Immature Granulocytes # (auto) 0.08 K/uL (0.00-0.02); Immature Granulocytes % (auto) 0.7 %; Lymphocytes # (auto) 2.02 K/uL (1.2-3.4); Monocytes # (auto) 1.06 K/uL (0.11-0.59); Monocytes % (auto) 9.4 %; Neutrophils # (auto) 7.91 K/uL (1.4-6.5); Neutrophils % (auto) 70.5 %
[2021-08-08] MEDS: OMEPRAZOLE 20 MG CAPCR PO SCH (08:28)
[2021-08-08] MEDS: PRENATAL VITAMIN 1 TAB PO SCH (08:28)
[2021-08-08] MEDS: DOCUSATE SODIUM 100 MG CAP PO SCH (08:28)
[2021-08-08] MEDS: SERTRALINE HCL 100 MG TABLET PO SCH (08:28)
[2021-08-08] MEDS: FERROUS SULFATE 325 MG TAB PO SCH (08:28)
[2021-08-08] MEDS: LORATADINE 10 MG TAB PO SCH (08:28)
--- NOTE | 2021-08-08 09:10 | Obstetrical Progress Note ---
Date of Service August 08, 2021 Assessment & Plan Admission and Anticipated Discharge Date Admission Date: August 06, 2021 Subjective Patient is seen and examined. She feels well, no complaints. Ambulating without dizziness Voiding without difficulty Tolerating regular diet with out N&V Bleeding is minimal No fever/ chills/ CP/ SOB/ N&V/ Leg pain Bottle feeding without problems Vital Signs Temp Pulse Resp BP 08/08/21 07:50 36.6 C 59 L 16 115/76 08/07/21 23:20 36.7 C 84 18 106/68 08/07/21 19:45 36.9 C 83 18 138/84 08/07/21 16:00 36.7 C 71 18 122/72 08/07/21 11:45 36.6 C 68 18 138/82 Lab Results 08/06/21 08/06/21 08/07/21 Range/Units 07:59 07:59 07:02 WBC 11.41 H 15.08 H (4.8-10.8) K/uL RBC 3.83 L 3.31 L (4.2-5.4) M/uL Hgb 11.9 L 10.2 L (12.0-16.0) g/dL Hct 35.2 L 30.2 L (37-47) % MCV 91.9 91.2 (80-100) fL MCH 31.1 30.8 (25-34) pg MCHC 33.8 33.8 (32-36) g/dL RDW Std Deviation 43.0 42.2 (36.4-46.3) fL RDW Coeff of Katia 12.8 12.7 (11.5-14.5) % Plt Count 281 265 (130-400) K/uL MPV 9.3 9.5 (7.4-10.4) fL Immature Gran % (Auto) % Neut % (Auto) % Lymph % (Auto) % [facility] % (Auto) % Eos % (Auto) % Baso % (Auto) % Neut # (Auto) (1.4-6.5) K/uL Lymph # (Auto) (1.2-3.4) K/uL [facility] # (Auto) (0.11-0.59) K/uL Eos # (Auto) (0-0.5) K/uL Baso # (Auto) (0-0.2) K/uL Immature Gran # (Auto) (0.00-0.02) K/uL Blood Type AB Positive Antibody Screen NEGATIVE 08/08/21 Range/Units 06:07 WBC 11.22 H (4.8-10.8) K/uL RBC 3.09 L (4.2-5.4) M/uL Hgb 9.5 L (12.0-16.0) g/dL Hct 29.2 L (37-47) % MCV 94.5 (80-100) fL MCH 30.7 (25-34) pg MCHC 32.5 (32-36) g/dL RDW Std Deviation 45.5 (36.4-46.3) fL RDW Coeff of Katia 13.2 (11.5-14.5) % Plt Count 227 (130-400) K/uL MPV 9.3 (7.4-10.4) fL Immature Gran % (Auto) 0.7 % Neut % (Auto) 70.5 % Lymph % (Auto) 18.0 % [facility] % (Auto) 9.4 % Eos % (Auto) 1.1 % Baso % (Auto) 0.3 % Neut # (Auto) 7.91 H (1.4-6.5) K/uL Lymph # (Auto) 2.02 (1.2-3.4) K/uL [facility] # (Auto) 1.06 H (0.11-0.59) K/uL Eos # (Auto) 0.12 (0-0.5) K/uL Baso # (Auto) 0.03 (0-0.2) K/uL Immature Gran # (Auto) 0.08 H (0.00-0.02) K/uL Blood Type Antibody Screen PE: General: Alert, orientedx3, NAD Abd: soft, NT, fundus firm, below Umbilicus Perineum intact, Lochia rubra minimal Ext; NT, no edema AP: 31 yo s/p , ppd# 2 VSS Afebrile doing well Continue routine care All questions were answered Discussed when to call D/C home , f/u in office Results & Data ([facility]) Vital Signs (Past 12 Hours) Vital Signs Temp Pulse Resp BP 08/08/21 07:50 36.6 C 59 L 16 115/76 08/07/21 23:20 36.7 C 84 18 106/68
== END 2021-08-08 10:49 | disposition home or self-care (01) | DRG 807 ==
LOC: 4S1 07:30 → 4S2 22:35